=== PATIENT | female | born 1995 | race Caucasian/White ===

== ENCOUNTER → 2020-08-08 | Outpatient (CLI) | payer OTHER ==
[~2020-08-08] MED LIST: CLARITIN10 MG PO; COLACE 100MG C100 MG PO; IBUPROFEN600 MG PO; LORTAB 5-325 M1 EACH PO; MACROBID 100 M100 MG PO; NAPROSYN500 MG PO; PRENATAL TABLE1 EAC1 PO
== END ==
LOC: ECHO 11:59
DX: R00.0 Tachycardia, unspecified (principal)
CPT/HCPCS: ECHO; 93306

== ENCOUNTER 2020-11-07 08:22 | Observation (INO) | payer OTHER ==
[~2020-11-07] VITALS: Ht 157.5 cm; Wt 57.2 kg
[2020-11-07 09:42] LABS: HEMOGLOBIN 13.5 gm/dl (12.3-15.3); RED BLOOD COUNT 4.48 M/UL (4.00-5.10); WHITE BLOOD COUNT 17.8 K/UL (4.5-11.0)
[2020-11-07 10:06] LABS: BUN/CREATININE RATIO 11 (0-10)
[2020-11-07] MEDS ORDERED: TYLENOL 8 HOUR650 MG PO (14:26)
[2020-11-08 04:23] LABS: HEMOGLOBIN 12.4 gm/dl (12.3-15.3); RED BLOOD COUNT 4.08 M/UL (4.00-5.10); WHITE BLOOD COUNT 13.6 K/UL (4.5-11.0)
[2020-11-08 04:48] LABS: BUN/CREATININE RATIO 7 (0-10)
--- NOTE | 2020-11-08 18:00 | NUR ---
1258- CALLED MD RELATED HYPOTENSION. NEW ORDER FOR 500ML NS BOLUS. WILL MONITOR.
[2020-11-09 02:59] LABS: HEMOGLOBIN 11.3 gm/dl (12.3-15.3); RED BLOOD COUNT 3.79 M/UL (4.00-5.10)
[2020-11-09 03:00] LABS: WHITE BLOOD COUNT 7.2 K/UL (4.5-11.0)
[2020-11-09 03:27] LABS: BUN/CREATININE RATIO 10 (0-10)
[2020-11-09] MEDS ORDERED: IBUPROFEN400 MG PO (09:10)
[2020-11-09] MEDS ORDERED: PROTONIX 40 MG40 M1 PO (09:10)
[2020-11-09] MEDS ORDERED: LEVOFLOXACIN750 MG PO (09:10)
== END 2020-11-09 11:12 | disposition home or self-care (01) ==
LOC: ER1 08:22 → M/S 13:34 → CDU 13:34 → M/S 22:40
PROVIDERS: Physician Assistant; Physician Assistant Medical; ADMIT Internal Medicine
DX: N10 Acute pyelonephritis (principal); N83.201 Unspecified ovarian cyst, right side; Z88.6 Allergy status to analgesic agent; U07.1 COVID-19; J18.9 Pneumonia, unspecified organism; Z87.442 Personal history of urinary calculi; K76.0 Fatty (change of) liver, not elsewhere classified
CPT/HCPCS: 36415; 71045; 80048; 80053; 81001; 83605; 83735; 84703; 85025; 85027; 86140; 87040; 87077; 87086; 87186; 96372; 96374; 96375; 96376; 99285; G0378; J0696; J1650; J2270; J2405; J2550; J7030; Q9967; U0002

== ENCOUNTER → 2021-05-15 | Outpatient (CLI) | payer OTHER ==
[~2021-05-15] MED LIST changes: +IBUPROFEN400 MG PO; +LEVOFLOXACIN750 MG PO; +PROTONIX 40 MG40 M1 PO; +TYLENOL 8 HOUR650 MG PO
== END ==
LOC: LAB 15:41
DX: N39.0 Urinary tract infection, site not specified (principal)
CPT/HCPCS: 87086

== ENCOUNTER → 2021-08-03 | Outpatient (CLI) | payer OTHER | LOC: LAB 11:10 | DX: Z32.00 Encounter for pregnancy test, result unknown (principal) | CPT/HCPCS: 36415; 84702 ==

== ENCOUNTER → 2021-09-02 | Day surgery (SDC) | payer OTHER ==
[~2021-09-02] MED LIST changes: +HYDROCODONE-AC1 EACH PO; +ZOFRAN 4 MG TAB4 MG PO
[2021-09-02 07:00] LABS: RED BLOOD COUNT 4.62 M/UL (4.00-5.10); WHITE BLOOD COUNT 7.2 K/UL (4.5-11.0)
== END | disposition home or self-care (01) ==
LOC: OR 06:04
PROVIDERS: Obstetrics & Gynecology
DX: O03.4 Incomplete spontaneous abortion without complication (principal); J45.909 Unspecified asthma, uncomplicated; Z88.6 Allergy status to analgesic agent; Z79.899 Other long term (current) drug therapy
CPT/HCPCS: 85025; 86850; 86900; 86901; J2001; J2250; J2704; J3010; J7120

== ENCOUNTER 2021-12-20 18:13 | Emergency (ER) | payer OTHER ==
[2021-12-20 18:46] LABS: RED BLOOD COUNT 4.67 M/UL (4.00-5.10); WHITE BLOOD COUNT 13.6 K/UL (4.5-11.0)
[2021-12-20 19:13] LABS: BUN/CREATININE RATIO 18 (0-10)
[2021-12-21] MEDS ORDERED: CEFUROXIME250 MG PO (00:03)
[2021-12-21] MEDS ORDERED: PHENERGAN 25 MG25 M1 PO (00:03)
[2021-12-21] MEDS ORDERED: PHENERGAN 12.12.5 MG PR (00:03)
== END 2021-12-21 00:34 | disposition home or self-care (01) ==
LOC: ER1 18:13
PROVIDERS: Physician Assistant
DX: O23.41 Unspecified infection of urinary tract in pregnancy, first trimester (principal); N39.0 Urinary tract infection, site not specified; O21.9 Vomiting of pregnancy, unspecified; Z88.8 Allergy status to other drugs, medicaments and biological substances; Z3A.01 Less than 8 weeks gestation of pregnancy
CPT/HCPCS: 80053; 81001; 85025; 96374; 96375; 99284; J0696; J2550